=== PATIENT | female | born 1975 | race Caucasian/White ===

== ENCOUNTER → 2021-05-25 | Outpatient (CLI) | payer OTHER | LOC: KOH-I 13:45 | DX: S82.142A Displaced bicondylar fracture of left tibia, initial encounter for closed fracture (principal); S83.8X2A Sprain of other specified parts of left knee, initial encounter; M25.462 Effusion, left knee; M71.562 Other bursitis, not elsewhere classified, left knee | CPT/HCPCS: 73721 ==